=== PATIENT | female | born 1985 | race Caucasian/White ===

== ENCOUNTER 2019-02-02 21:33 | Emergency (ER) | payer SELFPAY ==
[~2019-02-02] VITALS: Ht 152 cm; Wt 79.0 kg
[~2019-02-02 21:33] MED LIST: ACHD5005 PO; CEPH500C PO; CIPR500T78 PO; FERR325C PO; HYDR1TAB8 PO; LEVO500T2 PO; LEVO500T69 PO; METR500T PO; MTP50T PO; NAPR-243 PO; PREN1TAB25 PO; TAMS0.4C98 PO
--- NOTE | 2019-02-02 22:19 | NUR ---
PT RETURNED TO ER WAITING ROOM D/T HIGH PT VOLUME, EXPLAINED WAIT TIMES, PT VERBALIZED UNDERSTANDING
[2019-02-02] MEDS ORDERED: KETOROLAC 30 MG/ML VIAL IVP STA (23:59)
[2019-02-03] MEDS ORDERED: CLINDAMYCIN 600 MG/50 ML IVPB 50 ML IV ONE
--- NOTE | 2019-02-03 00:38 | ED Integumentary General ---
General Chief Complaint: Skin/Wound Problems Stated Complaint: WOUND ON RT LEG Source: patient (PT SPEAKS FAIR [place]), other (MALE S.O.) History of Present Illness Date Seen by Provider: Feb 02, 2019 Time Seen by Provider: 23:55 Initial Comments PT ARRIVES VIA POV C/O "BOIL BETWEEN HER LEGS" FOR 3-4 DAYS NO FEVER NO DRAINAGE NO PROBLEMS URINATING NO VAGINAL DISCHARGE NO HISTORY OF SIMILAR STATES SHE WAS SEEN AT [facility] YESTERDAY FOR THIS PROBLEM AND WAS GIVEN RX FOR UNKNOWN ANTIBIOTIC PILL AND RX FOR AN UNKNOWN CREAM STATES "NOT BETTER" SO CAME TO ER STATES "TOO MUCH PAIN " BUT HAS NOT TAKEN ANYTHING FOR PAIN AT ANY TIME. PCP: [facility] Allergies and Home Medications Allergies Coded Allergies: No Known Drug Allergies (Unverified , 02/03/15) Home Medications Ferrous Sulfate 325 ( 65 )Mg Capsule.sa, 325 ( PO BID Prescribed by: MAURICE EM on 10/22/14 0657 Hydrocodone Bit/Acetaminophen 1 Tab Tab, 1 EACH PO Q4H PRN for PAIN-MODERATE Prescribed by: NIDIA RODRIGUEZ on 02/03/19 0218 Hydrocodone/Ibuprofen 1 Each Tablet, 1 EACH PO Q4H Prescribed by: NIDIA RODRIGUEZ on 02/03/15 235 Ibuprofen 800 Mg Tablet, 800 MG PO Q8H PRN for PAIN Prescribed by: NIDIA RODRIGUEZ on 02/03/19 022 Levofloxacin 500 Mg Tablet, 500 MG PO DAILY Prescribed by: NIDIA RODRIGUEZ on 02/03/152350 Sulfamethoxazole/Trimethoprim 1 Each Tablet, 1 EACH PO BID Prescribed by: NIDIA RODRIGUEZ on 02/03/19217 Tamsulosin HCl 0.4 Mg Cap, 0.4 MG PO DAILY Prescribed by: NIDIA RODRIGUEZ on 02/03/15 235 Patient Home Medication List Home Medication List Reviewed: Yes Review of Systems Review of Systems Constitutional: No fever Gastrointestinal: no symptoms reported Genitourinary: see HPI Musculoskeletal: no symptoms reported Skin: see HPI Psychiatric/Neurological: No Symptoms Reported Past Vsdxdcr-Xxxpjo-Gknkyl Hx Patient Social History Alcohol Use: Denies Use Recreational Drug Use: No Smoking Status: Never a Smoker Recent Foreign Travel: No Contact w/Someone Who Travel: No Immunizations Up To Date Tetanus Booster (TDap): Less than 5yrs Seasonal Allergies Seasonal Allergies: No Past Medical History Surgeries: No Respiratory: No Cardiac: No Neurological: No : No Reproductive Disorders: No Female Reproductive Disorders: Denies Sexually Transmitted Disease: No HIV/AIDS: No Genitourinary: Yes Kidney Stones Gastrointestinal: No Musculoskeletal: No Endocrine: No HEENT: No Loss of Vision: Denies Hearing Impairment: Denies Psychosocial: No Integumentary: No Blood Disorders: No Family Medical History No Family History of: Abdominal aortic aneurysm Familia's disease Alcoholism Aphasia Cancer Cancer of colon Cataract Chest pain Congenital heart disease Congestive heart failure Cystic fibrosis Dementia Dysphagia Family history: Allergy Family history: Alzheimer's disease Family history: Arthritis Family history: Asthma Family history: Breast disease Family history: Cardiovascular disease Family history: Coronary thrombosis Family history: Diabetes mellitus Family history: Gastrointestinal disease Family history: Glaucoma Family history: Hypertension Family history: Osteoporosis Family history: Thyroid disorder Headache Hearing loss Heart disease Hereditary disease History of - anemia History of - disorder History of - respiratory disease History of drug abuse Human immunodeficiency virus (HIV) seropositivity Hypercholesterolemia Infertile Kidney disease Malignant neoplasm of lung Myocardial infarction Parkinson's disease Prostate cancer Psychotic disorder Seizure disorder Stroke Tuberculosis Visual impairment No Pertinent Family Hx Physical Exam Vital Signs Capillary Refill : General Appearance: WD/WN, no apparent distress Gastrointestinal: non tender, soft Neurologic/Psychiatric: no motor/sensory deficits, alert, normal mood/affect, oriented x 3 Skin: other (RIGHT GROIN--LATERAL TO LABIA MAJORA--WITH LARGE POINTING ABSCESS APPROXIMATELY 3 CM IN DIAMETER, WITH SURROUNDING ERYTHEMA AND INDURATION OF APPROXIMATELY 10 CM. NO DRAINAGE. NO STREAKS. ) Skin Problem Character: abscess Procedures/Interventions I&D : Site: RIGHT GROIN Blade Size: 11 I & D Procedure: betadine prep, sterile drapes applied, sterile dressing applied, gauze wick placed, Wound Packing Packing/Drain: Idoform 1/4 Progress AREA CLEANSED WITH BETADINE INJECTED WITH 2% LIDOCAINE + EPI INCISED WITH #11 BLADE COPIOUS AMOUNTS OF EXTREMELY FOUL-SMELLING PURULENT DRAINAGE FROM WOUND WOUND PROBED TO BREAK UP LOCULATIONS IRRIGATED PROFUSELY WITH STERILE SALINE PACKED WITH 1/4" IODOFORM GAUZE STERILE ABD PAD APPLIED. Progress/Results/Core Measures Results/Orders Lab Results Laboratory Tests Test 02/03/19 00:30 Range/Units White Blood Count 13.5 H 4.3-11.0 10^3/uL Red Blood Count 4.39 4.35-5.85 10^6/uL Hemoglobin 12.4 11.5-16.0 G/DL Hematocrit 37 35-52 % Mean Corpuscular Volume 85 80-99 FL Mean Corpuscular Hemoglobin 28 25-34 PG Mean Corpuscular Hemoglobin Concent 33 32-36 G/DL Red Cell Distribution Width 14.7 H 10.0-14.5 % Platelet Count 360 130-400 10^3/uL Mean Platelet Volume 10.8 H 7.4-10.4 FL Neutrophils (%) (Auto) 68 42-75 % Lymphocytes (%) (Auto) 20 12-44 % Monocytes (%) (Auto) 9 0-12 % Eosinophils (%) (Auto) 3 0-10 % Basophils (%) (Auto) 0 0-10 % Neutrophils # (Auto) 9.2 H 1.8-7.8 X 10^3 Lymphocytes # (Auto) 2.6 1.0-4.0 X 10^3 Monocytes # (Auto) 1.3 H 0.0-1.0 X 10^3 Eosinophils # (Auto) 0.4 H 0.0-0.3 10^3/uL Basophils # (Auto) 0.0 0.0-0.1 10^3/uL Sodium Level 139 135-145 MMOL/L Potassium Level 4.0 3.6-5.0 MMOL/L Chloride Level 108 H 98-107 MMOL/L Carbon Dioxide Level 19 L 21-32 MMOL/L Anion Gap 12 5-14 MMOL/L Blood Urea Nitrogen 11 7-18 MG/DL Creatinine 0.76 0.60-1.30 MG/DL Estimat Glomerular Filtration Rate > 60 BUN/Creatinine Ratio 14 Glucose Level 99 70-105 MG/DL Calcium Level 8.8 8.5-10.1 MG/DL Corrected Calcium 9.0 8.5-10.1 MG/DL Total Bilirubin 0.3 0.1-1.0 MG/DL Aspartate Amino Transf (AST/SGOT) 12 5-34 U/L Alanine Aminotransferase (ALT/SGPT) 15 0-55 U/L Alkaline Phosphatase 64 40-136 U/L Total Protein 7.3 6.4-8.2 GM/DL Albumin 3.8 3.2-4.5 GM/DL Serum Test, Qualitative NEGATIVE NEGATIVE My Orders Orders - JENNIFER,NIDIA K DO Ed Iv/Invasive Line Start (02/02/19 23:59) Cbc With Automated Diff (02/02/19 23:59) Comprehensive Metabolic Panel (02/02/19 23:59) Hcg,Qualitative Serum (02/02/19 23:59) Ketorolac Injection (Toradol Injection) (02/02/19 23:59) Clindamycin 600 Mg/50 Ml Ivpb (Cleocin P (02/03/19 00:00) Ct Pelvis W (02/03/19 00:20) Iohexol Injection (Omnipaque 350 Mg/Ml 1 (02/03/19 01:30) Ns (Ivpb) (Sodium Chloride 0.9% Ivpb Bag (02/03/19 01:30) Lidocaine/Epi 2% 1:100,000 (Xylocaine/Ep (02/03/19 02:00) Wound Culture (02/03/19 01:50) Rx-Hydrocodone/Apap 5-325 Mg (Rx-Vicodin (02/03/19 02:15) Wound Dressing-Ed (02/03/19 02:13) Rx-Trimeth/Sulfameth Ds Tab (Rx-Bactrim/ (02/03/19 02:14) Medications Given in ED Current Medications Medications Dose Ordered Sig/Kostas Route Start Time Stop Time Status Last Admin Dose Admin Clindamycin Phosphate/Dextrose 50 ml @ 100 mls/hr ONCE ONCE IV 02/03/19 00:00 02/03/19 00:29 DC 02/03/19 01:03 100 MLS/HR Iohexol 100 ml ONCE ONCE IV 02/03/19 01:30 02/03/19 02:07 DC 02/03/19 01:22 100 ML Lidocaine/ Epinephrine 20 ml ONCE ONCE INJ 02/03/19 02:00 02/03/19 02:01 DC 02/03/19 02:00 20 ML Sodium Chloride 80 ml ONCE ONCE IV 02/03/19 01:30 02/03/19 02:07 DC 02/03/19 01:22 100 ML Departure Impression Primary Impression: Groin abscess Disposition: 01 HOME, SELF-CARE Condition: Stable Departure-Patient Inst. Referrals: [facility] Patient Instructions: Abscess Incision and Drainage (DC) Add. Discharge Instructions: LEAVE PACKING IN PLACE YOU MAY CHANGE DRESSING DAILY AND NEEDED STOP YOUR CURRENT ANTIBIOTIC, AND START TAKING NEW ANTIBIOTIC FOLLOW UP WITH [facility] IN 1-2 DAYS FOR FURTHER CARE, CALL IN AM FOR APPOINTMENT All discharge instructions reviewed with patient and/or family. Voiced understanding. Scripts Ibuprofen (Ibuprofen) 800 Mg Tablet 800 MG PO Q8H PRN for PAIN, #20 TAB Prov: NIDIA RODRIGUEZ DO 02/03/19 Hydrocodone Bit/Acetaminophen (Hydrocodone/Acetaminophen 5/325mg Tablet) 1 Tab Tab 1 EACH PO Q4H PRN for PAIN-MODERATE MDD 10 for 3 Days, #10 TAB Prov: NIDIA RODRIGUEZ DO 02/03/19 Sulfamethoxazole/Trimethoprim (Bactrim Ds Tablet) 1 Each Tablet 1 EACH PO BID, #20 TAB Prov: NIDIA RODRIGUEZ DO 02/03/19 Work/School Note: Work Release Form Date Seen in the Emergency Department: Feb 02, 2019 Return to Work: Feb 04, 2019 NIDIA RODRIGUEZ DO Feb 03, 2019 00:38 POS
[2019-02-03 00:44] LABS: BASOPHILS % (AUTO) 0 % (0-10); EOSINOPHILS # (AUTO) 0.4 10^3/uL (0.0-0.3); EOSINOPHILS % (AUTO) 3 % (0-10); HEMATOCRIT 37 % (35-52); HEMOGLOBIN 12.4 G/DL (11.5-16.0); LYMPHOCYTES # (AUTO) 2.6 X 10^3 (1.0-4.0); LYMPHOCYTES % (AUTO) 20 % (12-44); MEAN CORPUSCULAR HEMOGLOBIN 28 PG (25-34); MEAN CORPUSCULAR HGB CONC 33 G/DL (32-36); MEAN CORPUSCULAR VOLUME 85 FL (80-99); MEAN PLATELET VOLUME 10.8 FL (7.4-10.4); MONOCYTES # (AUTO) 1.3 X 10^3 (0.0-1.0); MONOCYTES % (AUTO) 9 % (0-12); NEUTROPHILS # (AUTO) 9.2 X 10^3 (1.8-7.8); NEUTROPHILS % (AUTO) 68 % (42-75); PLATELET COUNT 360 10^3/uL (130-400); RED CELL DISTRIBUTION WIDTH 14.7 % (10.0-14.5); WHITE BLOOD COUNT 13.5 10^3/uL (4.3-11.0)
[2019-02-03 01:05] LABS: ALANINE AMINOTRANSFERASE 15 U/L (0-55); ALBUMIN 3.8 GM/DL (3.2-4.5); ALKALINE PHOSPHATASE 64 U/L (40-136); BILIRUBIN,TOTAL 0.3 MG/DL (0.1-1.0); BUN/CREATININE RATIO 14; CALCIUM 8.8 MG/DL (8.5-10.1); CARBON DIOXIDE 19 MMOL/L (21-32); CHLORIDE 108 MMOL/L (98-107); CREATININE SERUM 0.76 MG/DL (0.60-1.30); GFR ESTIMATED > 60; GLUCOSE 99 MG/DL (70-105); SODIUM 139 MMOL/L (135-145); TOTAL PROTEIN 7.3 GM/DL (6.4-8.2)
[2019-02-03] MEDS ORDERED: NS 100 ML (IVPB) BAG IV ONE (01:30)
[2019-02-03] MEDS ORDERED: IOHEXOL 350 MG/ML 100 ML (OMNIPAQUE 350) VIAL IV ONE (01:30)
[2019-02-03] MEDS ORDERED: LIDOCAINE/EPI 2% 1:100,00 (XYLOCAINE) 20 ML VIAL INJ ONE (02:00)
[2019-02-03] MEDS ORDERED: RX-TRIMETH/SULFA. 160-800 MG (BACTRIM DS) TAB PPK#2 PO STA (02:14)
[2019-02-03] MEDS ORDERED: RX-HYDROCODONE/APAP 5/325 MG #4 TAB PK PO PRN (02:15)
[2019-02-03] MEDS ORDERED: ACHD5005 PO (02:18)
[2019-02-03] MEDS ORDERED: SULF1TAB35 PO (02:18)
[2019-02-03] MEDS ORDERED: IBUP-1780 PO (02:20)
[2019-02-03 02:27] VITALS: BP 126/88
--- NOTE | 2019-02-03 07:03 | Diagnostic Imaging Report ---
PROCEDURE: CT pelvis with contrast. TECHNIQUE: Oral and intravenous contrast were administered with pelvic CT performed. Auto Exposure Controls were utilized during the CT exam to meet ALARA standards for radiation dose reduction. DATE: February 03, 2019. INDICATION: 33-year-old female, evaluation for inguinal abscess. COMPARISON: CT abdomen and pelvis February 03, 2015. FINDINGS: The visualized segments of the intestinal tract are not distended. The appendix is normal. There is no free intraperitoneal air. There is no free pelvic fluid. There is a peripherally enhancing central low attenuation mass near the skin surface of the inner aspect of the right thigh on axial image 100 measuring 3.1 x 2.9 cm in axial dimension with prominent adjacent inflammatory stranding. There does appear to be skin thickening in the region. This is compatible with provided history of abscess. There is additional adjacent inflammatory stranding of the subcutaneous tissues of the medial thigh likely relating to cellulitis although not technically specific. There is no abnormal soft tissue gas. There is an asymmetrically prominent right inguinal lymph node measuring 1.2 cm in short axis on axial image 76 which is likely reactive. There are also very small right external iliac chain lymph nodes which are also likely reactive. The uterus and adnexa are grossly unremarkable in appearance on CT. There is no identified urinary bladder wall thickening. There are bilateral L5 pars interarticularis defects with mild grade 1 anterolisthesis of L5 on S1. IMPRESSION: 1. Findings consistent with provided history of abscess within the subcutaneous tissues of the medial aspect of the right thigh with adjacent inflammatory stranding of the subcutaneous tissues most likely relating to cellulitis. 2. No abnormal soft tissue gas or radiopaque foreign body. 3. Prominent right inguinal and right external iliac chain lymph nodes which are likely reactive. 4. Bilateral L5 pars interarticularis defects with grade 1 anterolisthesis of L5 on S1. Dictated by: Dictated on workstation # [id number]
== END 2019-02-03 02:32 | disposition home or self-care (01) ==
LOC: EDUNIT# 21:33 → ER 21:37
DX: L02.214 Cutaneous abscess of groin (principal); Z87.442 Personal history of urinary calculi
CPT/HCPCS: 36415; 72193; 80053; 84703; 85025; 87070; 87205

== ENCOUNTER → 2022-03-25 | Outpatient (CLI) | payer SELFPAY ==
[~2022-03-25] MED LIST changes: +IBUP-1780 PO; +SULF1TAB38 PO; -TAMS0.4C98 PO; +TMSL.4C PO
== END ==
LOC: LAB 09:36
PROVIDERS: ATTEND Obstetrics & Gynecology
DX: Z01.89 Encounter for other specified special examinations (principal)
CPT/HCPCS: 36415; 84702

== ENCOUNTER 2022-05-10 10:12 | Emergency (ER) | payer SELFPAY ==
[~2022-05-10] VITALS: Ht 152.4 cm; Wt 86.2 kg
--- NOTE | 2022-05-10 10:49 | ED GU-Female ---
General Chief Complaint: OB < 20 WEEKS Stated Complaint: 12 WEEKS | VAGINAL BLEEDING Source: patient, family Exam Limitations: language barrier History of Present Illness Date Seen by Provider: May 10, 2022 Time Seen by Provider: 10:35 Initial Comments Patient is a 37-year-old female who presents to the emergency room chief complaint heavy vaginal bleeding onset 1 to 2 hours prior to arrival. Patient describes the bleeding as heavy. She denies abdominal cramping or pain. No burning with urination. No abdominal pain. She has not had any problems with this so far. She is getting care through Dr. Deal. She states her due date is November 19 which places her at 12 weeks and 3/7. No recent illnesses. She does not take any daily medications. No trauma. Bedside wkfpf-wy-lbxh ultrasound used at initial evaluation demonstrates good movement and adequate heart beat. 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) Severity/Quality: moderate ("heavy") Location: vaginal Activities at Onset: none Prior Genitourinary Problems: none Associated Symptoms: denies symptoms Allergies and Home Medications Allergies Coded Allergies: No Known Drug Allergies (Unverified , 02/03/15) Patient Home Medication List Home Medication List Reviewed: Yes Ferrous Sulfate (Iron) 325 ( 65 )Mg Capsule.sa, 325 ( PO BID Prescribed by: MAURICE EM on 10/22/14 0657 Hydrocodone Bit/Acetaminophen (Lortab 5 Mg Tablet) 1 Tab Tab, 1 EACH PO Q4H PRN for PAIN-MODERATE Prescribed by: NIDIA RODRIGUEZ on 02/03/19217 Hydrocodone/Ibuprofen (Vicoprofen 7.5-200 mg Tablet) 1 Each Tablet, 1 EACH PO Q4H Prescribed by: NIDIA RODRIGUEZ on 02/03/152350 Ibuprofen (Ibuprofen) 800 Mg Tablet, 800 MG PO Q8H PRN for PAIN Prescribed by: NIDIA RODRIGUEZ on 02/03/19219 Levofloxacin (Levaquin) 500 Mg Tablet, 500 MG PO DAILY Prescribed by: NIDIA RODRIGUEZ on 02/03/152350 Sulfamethoxazole/Trimethoprim (Bactrim Ds Tablet) 1 Each Tablet, 1 EACH PO BID Prescribed by: NIDIA RODRIGUEZ on 02/03/19217 Tamsulosin HCl (Flomax) 0.4 Mg Cap, 0.4 MG PO DAILY Prescribed by: NIDIA RODRIGUEZ on 02/03/15 5791 Review of Systems Review of Systems Constitutional: see HPI EENTM: no symptoms reported Respiratory: no symptoms reported Cardiovascular: no symptoms reported Gastrointestinal: no symptoms reported Genitourinary: other (vaginal bleeding today) : Yes Expected Date of Delivery: Nov 19, 2022 Musculoskeletal: no symptoms reported Skin: no symptoms reported Psychiatric/Neurological: No Symptoms Reported All Other Systemes Reviewed Negative Unless Noted: Yes Past Bkapuxg-Mdvmbw-Uhmvks Hx Immunizations Up To Date Tetanus Booster (TDap): Less than 5yrs Seasonal Allergies Seasonal Allergies: No Past Medical History Surgeries: No Respiratory: No Cardiac: No Neurological: No Reproductive Disorders: No Female Reproductive Disorders: Denies Sexually Transmitted Disease: No HIV/AIDS: No Genitourinary: Yes Kidney Stones Gastrointestinal: No Musculoskeletal: No Endocrine: No HEENT: No Loss of Vision: Denies Hearing Impairment: Denies Cancer: No Psychosocial: No Integumentary: No Blood Disorders: No Family Medical History No Family History of: Abdominal aortic aneurysm [place]'s disease Alcoholism Aphasia Cancer Cancer of colon Cataract Chest pain Congenital heart disease Congestive heart failure Cystic fibrosis Dementia Dysphagia Family history: Allergy Family history: Alzheimer's disease Family history: Arthritis Family history: Asthma Family history: Breast disease Family history: Cardiovascular disease Family history: Coronary thrombosis Family history: Diabetes mellitus Family history: Gastrointestinal disease Family history: Glaucoma Family history: Hypertension Family history: Osteoporosis Family history: Thyroid disorder Headache Hearing loss Heart disease Hereditary disease History of - anemia History of - disorder History of - respiratory disease History of drug abuse Human immunodeficiency virus (HIV) seropositivity Hypercholesterolemia Infertile Kidney disease Malignant neoplasm of lung Myocardial infarction Parkinson's disease Prostate cancer Psychotic disorder Seizure disorder Stroke Tuberculosis Visual impairment No Pertinent Family Hx Physical Exam Vital Signs Vital Signs - First Documented 05/10/22 10:32 Temp 36.9 Pulse 95 Resp 16 B/P (MAP) 150/94 (112) Pulse Ox 97 O2 Delivery Room Air Capillary Refill : Height, Weight, BMI Height: 5'6" Weight: 160lbs. 0.6oz. 72.605308ci; 34.00 BMI Method:Stated General Appearance: WD/WN, no apparent distress HEENT: PERRL/EOMI Cardiovascular: regular rate, rhythm Respiratory: no respiratory distress, no accessory muscle use Gastrointestinal: normal bowel sounds, non tender, soft Extremities: normal range of motion, normal inspection Neurologic/Psychiatric: alert, normal mood/affect, oriented x 3 Skin: normal color, warm/dry Progress/Results/Core Measures Suspected Sepsis SIRS Temperature: Pulse: Respiratory Rate: Laboratory Tests 05/10/22 12:02: White Blood Count 13.2H Blood Pressure / Mean: Laboratory Tests 05/10/22 12:02: Creatinine 0.61, Platelet Count 396 Results/Orders Lab Results Laboratory Tests Test 05/10/22 12:02 Range/Units White Blood Count 13.2 H 4.3-11.0 10^3/uL Red Blood Count 4.94 3.80-5.11 10^6/uL Hemoglobin 14.3 11.5-16.0 g/dL Hematocrit 43 35-52 % Mean Corpuscular Volume 88 80-99 fL Mean Corpuscular Hemoglobin 29 25-34 pg Mean Corpuscular Hemoglobin Concent 33 32-36 g/dL Red Cell Distribution Width 13.5 10.0-14.5 % Platelet Count 396 130-400 10^3/uL Mean Platelet Volume 10.2 9.0-12.2 fL Immature Granulocyte % (Auto) 1 % Neutrophils (%) (Auto) 75 42-75 % Lymphocytes (%) (Auto) 18 12-44 % Monocytes (%) (Auto) 5 0-12 % Eosinophils (%) (Auto) 2 0-10 % Basophils (%) (Auto) 1 0-10 % Neutrophils # (Auto) 9.9 H 1.8-7.8 10^3/uL Lymphocytes # (Auto) 2.3 1.0-4.0 10^3/uL Monocytes # (Auto) 0.7 0.0-1.0 10^3/uL Eosinophils # (Auto) 0.2 0.0-0.3 10^3/uL Basophils # (Auto) 0.1 0.0-0.1 10^3/uL Immature Granulocyte # (Auto) 0.1 0.0-0.1 10^3/uL Urine Color YELLOW Urine Clarity CLEAR Urine pH 6.0 5-9 Urine Specific [place] 1.010 L 1.016-1.022 Urine Protein NEGATIVE NEGATIVE Urine Glucose (UA) NEGATIVE NEGATIVE Urine Ketones NEGATIVE NEGATIVE Urine Nitrite NEGATIVE NEGATIVE Urine Bilirubin NEGATIVE NEGATIVE Urine Urobilinogen 0.2 < = 1.0 MG/DL Urine Leukocyte Esterase NEGATIVE NEGATIVE Urine RBC (Auto) 3+ H NEGATIVE Urine RBC 2-5 H /HPF Urine WBC NONE /HPF Urine Squamous Epithelial Cells 0-2 /HPF Urine Crystals NONE /LPF Urine Bacteria TRACE /HPF Urine Casts NONE /LPF Urine Mucus NEGATIVE /LPF Urine Culture Indicated NO Sodium Level 138 135-145 MMOL/L Potassium Level 3.8 3.6-5.0 MMOL/L Chloride Level 107 98-107 MMOL/L Carbon Dioxide Level 20 L 21-32 MMOL/L Anion Gap 11 5-14 MMOL/L Blood Urea Nitrogen 7 7-18 MG/DL Creatinine 0.61 0.60-1.30 MG/DL Estimat Glomerular Filtration Rate 118 BUN/Creatinine Ratio 11 Glucose Level 88 70-105 MG/DL Calcium Level 9.5 8.5-10.1 MG/DL My Orders Orders - KATIE OBREGON MD Ed Iv/Invasive Line Start (05/10/22 10:53) Cbc With Automated Diff (05/10/22 10:53) Ua Culture If Indicated (05/10/22 10:53) Basic Metabolic Panel (05/10/22 10:53) Us Ob<14 Wks Sngle W/Transvag (05/10/22 10:53) Vital Signs/I&O 05/10/22 10:32 Temp 36.9 Pulse 95 Resp 16 B/P (MAP) 150/94 (112) Pulse Ox 97 O2 Delivery Room Air Capillary Refill : Progress Note : Time: 13:05 Progress Note Case discussed with Dr Deal Diagnostic Imaging Diagonstic Imaging: Ultrasound Comments [facility], [place] NAME: NORMA CHOI [facility] REC#: [id number] PT STATUS: REG ER : 1985 PHYSICIAN: KATIE OBREGON MD ADMIT DATE: 05/10/22/ER Signed Date of Exam:05/10/22 US OB<14 WKS SNGLE W/TRANSVAG EXAM: First Trimester Ultrasound INDICATIONS: Age by LMP is 13 weeks, 4 days. TECHNIQUE: The pelvis was scanned using transabdominal and endovaginal technique. COMPARISON: None. FINDINGS: Endovaginal sonography demonstrates a single living intrauterine gestation. No secondary yolk sac is identified. The appearance of the embryo and gestation is normal for age. There is a small subchorionic hemorrhage measuring 2.7 x 1.4 x 1.0 cm. Both ovaries were identified and appear normal. The left measures 3.0 x 2.0 x 3.3 cm, and the right 2.2 x 3.3 x 3.7 cm. No abnormal adnexal masses. No free fluid. biometry: Muir rump length 6.1 cm: 12 weeks, 4 days. The placenta is low-lying and appears to completely cover the cervical os concerning for grade 4 or complete previa. IMPRESSION: 1. Single living intrauterine gestation with estimated gestational age by CRL of 12 weeks 4 days. 2. Small subchorionic hemorrhage measuring 2.7 cm. 3. Findings concerning for complete placenta previa. Dictated by: Dictated on workstation # [id number] Dict: 05/10/22 1211 Trans: 05/10/22 1241 CV [id number] Interpreted by: LUCHO LOPEZ DO Electronically signed by: LUCHO LOPEZ DO 05/10/22 1241 Departure Impression Primary Impression: Threatened miscarriage Additional Impression: Subchorionic hemorrhage in second trimester Qualified Codes: O41.8X20 - Other specified disorders of amniotic fluid and membranes, second trimester, not applicable or unspecified; O46.8X2 - Other antepartum hemorrhage, second trimester Disposition: 01 HOME, SELF-CARE Condition: Stable Departure-Patient Inst. Decision time for Depature: 13:07 Referrals: [facility] (PCP/Family) Primary Care Physician PUNEET DEAL DO Patient Instructions: Threatened Miscarriage (DC) Add. Discharge Instructions: Continue to drink plenty of fluids to stay well-hydrated. Pelvic rest is very important. Do not use tampons, douches or have sex until you have followed up with Dr. Deal and he gives you the all clear. I am giving you a lifting restriction for work of 10 pounds. If you have onset of very heavy vaginal bleeding to the point where you feel short of breath, weak and dizzy when you stand up or have a pass out spell please come back to the emergency department for reevaluation. Please keep your appointment with Dr. Deal on May 17. Continue to take your vitamins daily. Contine bebiendo muchos lquidos para mantenerse brannon hidratado. El descanso plvico es muy importante. No use tampones, duchas vaginales ni tenga relaciones sexuales hasta que haya hecho un seguimiento con el Dr. Deal y l le d el visto zamudio. Le doy otilio restriccin de levantamiento para el trabajo de 10 libras. Si comienza a sangrar mucho por la vagina hasta el punto en que se siente sin aliento, dbil y mareado cuando se pone de pie o se desmaya, vuelva al departamento de emergencias para otilio reevaluacin. Por favor mantenga remy dao con el Dr. Deal el . Contine tomando eduard vitaminas prenatales diariamente. Work/School Note: Work Release Form Date Seen in the Emergency Department: 2022 Return to Work: May 11, 2022 Restrictions: Lifting Restriction while working of no more than 10# Copy Copies To 1: LEOPOLDO TANNER DO Copies To 2: PUNEET DEAL KATHRYN M MD May 10, 2022 10:49
[2022-05-10 12:09] LABS: BASOPHILS # (AUTO) 0.1 10^3/uL (0.0-0.1); BASOPHILS % (AUTO) 1 % (0-10); EOSINOPHILS # (AUTO) 0.2 10^3/uL (0.0-0.3); EOSINOPHILS % (AUTO) 2 % (0-10); HEMATOCRIT 43 % (35-52); HEMOGLOBIN 14.3 g/dL (11.5-16.0); LYMPHOCYTES # (AUTO) 2.3 10^3/uL (1.0-4.0); LYMPHOCYTES % (AUTO) 18 % (12-44); MEAN CORPUSCULAR HEMOGLOBIN 29 pg (25-34); MEAN CORPUSCULAR HGB CONC 33 g/dL (32-36); MEAN CORPUSCULAR VOLUME 88 fL (80-99); MEAN PLATELET VOLUME 10.2 fL (9.0-12.2); MONOCYTES # (AUTO) 0.7 10^3/uL (0.0-1.0); MONOCYTES % (AUTO) 5 % (0-12); NEUTROPHILS # (AUTO) 9.9 10^3/uL (1.8-7.8); NEUTROPHILS % (AUTO) 75 % (42-75); PLATELET COUNT 396 10^3/uL (130-400); WHITE BLOOD COUNT 13.2 10^3/uL (4.3-11.0)
[2022-05-10 12:10] LABS: BILIRUBIN,URINE NEGATIVE (NEGATIVE); CLARITY,URINE CLEAR; COLOR,URINE YELLOW; GLUCOSE, URINE (UA) NEGATIVE (NEGATIVE); KETONES,URINE NEGATIVE (NEGATIVE); LEUKOCYTE ESTERASE ,URINE NEGATIVE (NEGATIVE); NITRITE,URINE NEGATIVE (NEGATIVE); PROTEIN,URINE NEGATIVE (NEGATIVE)
--- NOTE | 2022-05-10 12:21 | Diagnostic Imaging Report ---
EXAM: First Trimester Ultrasound INDICATIONS: Age by LMP is 13 weeks, 4 days. TECHNIQUE: The pelvis was scanned using transabdominal and endovaginal technique. COMPARISON: None. FINDINGS: Endovaginal sonography demonstrates a single living intrauterine gestation. No secondary yolk sac is identified. The appearance of the embryo and gestation is normal for age. There is a small subchorionic hemorrhage measuring 2.7 x 1.4 x 1.0 cm. Both ovaries were identified and appear normal. The left measures 3.0 x 2.0 x 3.3 cm, and the right 2.2 x 3.3 x 3.7 cm. No abnormal adnexal masses. No free fluid. biometry: [place] rump length 6.1 cm: 12 weeks, 4 days. The placenta is low-lying and appears to completely cover the cervical os concerning for grade 4 or complete previa. IMPRESSION: 1. Single living intrauterine gestation with estimated gestational age by CRL of 12 weeks 4 days. 2. Small subchorionic hemorrhage measuring 2.7 cm. 3. Findings concerning for complete placenta previa. Dictated by: Dictated on workstation # [id number]
[2022-05-10 12:23] LABS: BACTERIA,URINE TRACE /HPF; POTASSIUM 3.8 MMOL/L (3.6-5.0); SQUAMOUS EPITHELIAL CELL,UR 0-2 /HPF
[2022-05-10 12:24] LABS: CALCIUM 9.5 MG/DL (8.5-10.1)
[2022-05-10 12:28] LABS: CREATININE SERUM 0.61 MG/DL (0.60-1.30)
[2022-05-10 13:18] VITALS: BP 135/86
== END 2022-05-10 13:18 | disposition home or self-care (01) ==
LOC: EDUNIT# 10:12 → ER 10:14
DX: O20.0 Threatened abortion (principal); Z3A.12 12 weeks gestation of pregnancy
CPT/HCPCS: 36415; 76801; 76817; 80048; 81000; 85025

== ENCOUNTER → 2022-07-11 | Outpatient (CLI) | payer OTHER ==
--- NOTE | 2022-07-11 18:07 | Diagnostic Imaging Report ---
INDICATION: Supervision of normal . Anatomy scan. TECHNIQUE: Multiple real-time grayscale images were obtained over the gravid uterus. COMPARISON: 05/10/2022. FINDINGS: A single live intrauterine gestation is seen in cephalic presentation. heart tones measure 146 BPM. The placenta is posterior and low lying. The cervix is closed and measures 4.8 cm in length. The BLU is normal measuring 19.7 cm. Views of the adnexa are unremarkable. The kidneys, urinary bladder, stomach, ventricles, four-chamber heart, three-vessel cord, spine, and cord insertion are visualized and have a normal appearance. Biometrical measurements are as follows: Biparietal 5.11 cm, age 21 weeks 4 days. Head circumference 19.55 cm, age 21 weeks 6 days. Abdominal circumference 18.77 cm, age 23 weeks 4 days. Femur length 3.43 cm, age 20 weeks 6 days. Sonographic estimate age: 22 weeks 0 days. Sonographic estimated date of delivery: 11/14/2022. Estimated Weight: 487 gm (+/- 71 gm). LMP percentile: 89%. heart rate: 146 beats per minute. number: 1 of 1. IMPRESSION: 1. Single live intrauterine gestation measuring 22 weeks 0 days with an estimated due date of 11/14/2022. These are within range with the clinical dates. Recommend continued follow-up as indicated. 2. Posterior placenta which is somewhat low lying measuring 2.4 cm from the internal cervical os. Recommend continued attention on follow-up. 3. Unremarkable anatomy scan. No abnormalities are identified. Dictated by: Dictated on workstation # [id number]
== END ==
LOC: RAD 12:45
PROVIDERS: ATTEND Nurse Practitioner Women's Health
DX: Z34.02 Encounter for supervision of normal first pregnancy, second trimester (principal); Z3A.22 22 weeks gestation of pregnancy
CPT/HCPCS: 76805

== ENCOUNTER → 2022-10-09 | Outpatient (CLI) | payer SELFPAY | LOC: LABNPT 09:36 | PROVIDERS: ATTEND Nurse Practitioner Women's Health | DX: O13.9 Gestational [pregnancy-induced] hypertension without significant proteinuria, unspecified trimester (principal); Z3A.00 Weeks of gestation of pregnancy not specified | CPT/HCPCS: 82570; 84156 ==

== ENCOUNTER → 2022-10-10 | Outpatient (CLI) | payer OTHER ==
--- NOTE | 2022-10-10 17:20 | Diagnostic Imaging Report ---
INDICATION: Large for dates. TECHNIQUE: Multiple real-time grayscale images were obtained over the gravid uterus. COMPARISON: 07/11/2022. FINDINGS: There is a single live fetus in a cephalic presentation. heart rate was recorded at 140 BPM. Placenta is posterior and fundal. No previa is detected. The amniotic fluid index is 12.5 cm. Cervical length is 3.9 cm. Biometrical measurements are as follows: Biparietal 8.89 cm, age 36 weeks 0 days. Head circumference 32.52 cm, age 36 weeks 6 days. Abdominal circumference 33.67 cm, age 37 weeks 5 days. Femur length 6.74 cm, age 34 weeks 5 days. Sonographic estimate age: 36 weeks 3 days. Sonographic estimated date of delivery: 11/19/2022. Estimated Weight: 2983 gm (+/- 436 gm). LMP percentile: 96%. heart rate: 140 beats per minute. number: 1 of 1. IMPRESSION: Single live IUP of 36 weeks 3 days gestational age showing normal interval growth when compared with prior exam from 07/11/2022. Placenta is no longer low lying in position. No previa is detected. No complicating features are detected. Dictated by: Dictated on workstation # [id number]
== END ==
LOC: RAD 09:37
PROVIDERS: ATTEND Nurse Practitioner Women's Health
DX: O36.63X1 Maternal care for excessive fetal growth, third trimester, fetus 1 (principal); Z3A.36 36 weeks gestation of pregnancy
CPT/HCPCS: 76805

== ENCOUNTER → 2022-10-24 | Outpatient (CLI) | payer SELFPAY ==
[~2022-10-24] MED LIST changes: +LABE100T9 PO; +PNV-9 PO
== END ==
LOC: LABNPT 14:22
PROVIDERS: ATTEND Nurse Practitioner Women's Health
DX: O13.9 Gestational [pregnancy-induced] hypertension without significant proteinuria, unspecified trimester (principal); Z3A.00 Weeks of gestation of pregnancy not specified
CPT/HCPCS: 82570; 84156

== ENCOUNTER 2022-10-27 11:41 | Inpatient (IN) | payer SELFPAY ==
[2022-10-27] VITALS (77 sets, daily range): BP systolic 122–181; BP diastolic 70–108
[~2022-10-27] VITALS: Ht 154.9 cm; Wt 97.7 kg
[~2022-10-27 11:41] MED LIST changes: -DOCU100C37 PO; -FERR325T24 PO; -LABE100T9 PO; -PNV-9 PO
[2022-10-27] MEDS ORDERED: CALCIUM GLUCONATE 10% 4.65 MEQ/10 ML VIAL IV SCH (12:00)
[2022-10-27] MEDS ORDERED: D5 LR 1,000 ML IV SOLN 1,000 ML IV SCH (12:00)
[2022-10-27] MEDS ORDERED: MAGNESIUM 4 GM/100 ML IVPB 100 ML IV SCH (12:00)
[2022-10-27 12:30] LABS: BASOPHILS # (AUTO) 0.1 10^3/uL (0.0-0.1); BASOPHILS % (AUTO) 1 % (0-10); EOSINOPHILS # (AUTO) 0.1 10^3/uL (0.0-0.3); EOSINOPHILS % (AUTO) 1 % (0-10); HEMATOCRIT 32 % (35-52); HEMOGLOBIN 10.3 g/dL (11.5-16.0); LYMPHOCYTES # (AUTO) 2.3 10^3/uL (1.0-4.0); LYMPHOCYTES % (AUTO) 21 % (12-44); MEAN CORPUSCULAR HEMOGLOBIN 26 pg (25-34); MEAN CORPUSCULAR HGB CONC 32 g/dL (32-36); MEAN CORPUSCULAR VOLUME 82 fL (80-99); MEAN PLATELET VOLUME 10.8 fL (9.0-12.2); MONOCYTES # (AUTO) 1.2 10^3/uL (0.0-1.0); MONOCYTES % (AUTO) 11 % (0-12); NEUTROPHILS # (AUTO) 6.9 10^3/uL (1.8-7.8); NEUTROPHILS % (AUTO) 63 % (42-75); PLATELET COUNT 381 10^3/uL (130-400); WHITE BLOOD COUNT 10.9 10^3/uL (4.3-11.0)
[2022-10-27] MEDS ORDERED: MAGNESIUM 2 GM/50 ML IVPB 2 GM in MAGNESIUM 4 GM/100 ML IVPB 100 ML IV ONE (12:30)
[2022-10-27] MEDS ORDERED: AMPICILLIN (IV) 2,000 MG in NS (IVPB) 50 ML 50 ML IV SCH (12:33)
[2022-10-27] MEDS ORDERED: MAGNESIUM 2 GM/50 ML IVPB 50 ML IV ONE (12:37)
[2022-10-27] MEDS ORDERED: MAGNESIUM 4 GM/100 ML IVPB 100 ML IV ONE (12:37)
[2022-10-27] MEDS ORDERED: WATER (STERILE) FOR INJECTION 0 ML ONE (12:37)
[2022-10-27] MEDS ORDERED: AMPICILLIN 2,000 MG/14.8 ML (IV USE) ONE (12:37)
--- NOTE | 2022-10-27 12:40 | History & Physical-OB ---
OB - Chief Complaint & HPI Date/Time Date of Admission: Date of Admission: Oct 27, 2022 at 11:41 Date seen by a Provider: Oct 27, 2022 Time Seen by a Provider: 10:45 Chief Complaint/History OB-Reason for Admission/Chief: Obstetrical Complication Hx : 7 Hx Para: 4 Expected Date of Delivery: Nov 19, 2022 Gestational Age in Weeks: 36 Gestational Age in Days: 5 Indication for induction: medical complication (severe preeclampsia) Admission Nurse Assessment Rev: Yes Other This 37yo presents for IOL d/t severe preeclampsia with BP >160/90 and elevated liver enzymes. Pt states that she has nausea that started today but denies PALMER, vision changes, epigastric pain. EFW 3406g HC/AC 0.96 O+ GBS + R-I Hep B/C neg HIV neg Allergies and Home Medications Allergies Coded Allergies: No Known Drug Allergies (Unverified , 02/03/15) Patient Home Medication List Home Medication List Reviewed: Yes Cephalexin (Cephalexin) 500 Mg Capsule, 500 MG PO QID, (Reported) Entered as Reported by: SAEED ONTIVEROS on 10/27/221640 Last Action: New Order Labetalol HCl (Labetalol HCl) 100 Mg Tablet, 100 MG PO BID, (Reported) Entered as Reported by: SAEED ONTIVEROS on 10/27/22 164 Last Action: New Order Pnv 119/Iron Fum/Folic Acid ( 19 Tablet) 29 Mg Iron-1 Mg Tablet, 1 EACH PO DAILY, (Reported) Entered as Reported by: SAEED ONTIVEROS on 10/27/22 1626 Last Action: New Order Discontinued Medications Ferrous Sulfate (Iron) 325 ( 65 )Mg Capsule.sa, 325 ( PO BID Discontinued Reason: No Longer Taking Prescribed by: MAURICE EM on 10/22/14 0657 Last Action: Discontinued Hydrocodone Bit/Acetaminophen (Lortab 5 Mg Tablet) 1 Tab Tab, 1 EACH PO Q4H PRN for PAIN-MODERATE Discontinued Reason: No Longer Taking Prescribed by: NIDIA RODRIGUEZ on 02/03/19 0218 Last Action: Discontinued Hydrocodone/Ibuprofen (Vicoprofen 7.5-200 mg Tablet) 1 Each Tablet, 1 EACH PO Q4H Discontinued Reason: No Longer Taking Prescribed by: NIDIA RODRIGUEZ on 02/03/15 2651 Last Action: Discontinued Ibuprofen (Ibuprofen) 800 Mg Tablet, 800 MG PO Q8H PRN for PAIN Discontinued Reason: No Longer Taking Prescribed by: NIDIA RODRIGUEZ on 02/03/19219 Last Action: Discontinued Levofloxacin (Levaquin) 500 Mg Tablet, 500 MG PO DAILY Discontinued Reason: No Longer Taking Prescribed by: NIDIA RODRIGUEZ on 02/03/152350 Last Action: Discontinued Sulfamethoxazole/Trimethoprim (Bactrim Ds Tablet) 1 Each Tablet, 1 EACH PO BID Discontinued Reason: No Longer Taking Prescribed by: NIDIA RODRIGUEZ on 02/03/19217 Last Action: Discontinued Tamsulosin HCl (Flomax) 0.4 Mg Cap, 0.4 MG PO DAILY Discontinued Reason: No Longer Taking Prescribed by: NIDIA RODRIGUEZ on 02/03/152350 Last Action: Discontinued OB - History Hx of Present Care: Yes Ultrasounds: Abnormal US findings (LGA EFW 3406g HC/AC 0.96) Obstetrical Complications: Pre-eclampsia Information Induced Hypertension: Yes Maternal Gestational Diabetes: No Hemorrhage: No Obstetrical History Hx : 7 Hx Para: 4 Hx # Term Pregnancies: 4 Hx # Pregnancies: 0 Number of Living Children: 4 Hx Termination: Yes Hx Total # of Abortions (Spona: 2 Hx Multiple Gestation: No Hx Ectopic : No Hx Stillbirth: No Hx Complication: No Hx Induced Hypertens: Yes Hx Maternal Gestational Diabet: No Delivery History Hx Dystocia: No Hx Large For Gestational Age I: No Hx Small for Gestational Age I: No Hx Section: No Hx Vaginal Delivery Post C-Sec: No Hx Blood Disorders: No Patient Past Medical History PIH/Preeclampsia Social History/Family History Alcohol Use: Denies Use Smoking Cessation: Never smoker Immunizations Influenza Vaccine Up-to-Date: Yes; Up-to-Date Tetanus Booster (TDap): Less than 5yrs OB - Admission Exam Physical Exam HEENT: NCAT Heart: Rhythm Normal Lungs: Clear Abdomen: Gravid Extremities: Edema (+2 pittling BLE) Reflexes: Normal Cervical Dilatation: 2cm Effacement: 50% Station: Ballotable Membranes: Intact Amniotic Fluid: Clear Heart Rate: 140's Accelerations: Accelerations Present Decelerations: No Decelerations Short Term Variability: Present Server Developer Variability: Average (6-25) Contractions on Admission: >10 Minutes Apart Intensity: Mild Mckeon Scoring Tool (Modified) Dilation (cm): 1-2cm (1) Effacement (%): 31-51% (1) Descent/Station: -3 (0) Cervix Consistency: Soft (2) Cervix Position: Middle/Mid-Position (1) Mckeon Score: 6 Labs Laboratory Tests Test 10/27/22 12:18 Range/Units White Blood Count 10.9 4.3-11.0 10^3/uL Red Blood Count 3.91 3.80-5.11 10^6/uL Hemoglobin 10.3 L 11.5-16.0 g/dL Hematocrit 32 L 35-52 % Mean Corpuscular Volume 82 80-99 fL Mean Corpuscular Hemoglobin 26 25-34 pg Mean Corpuscular Hemoglobin Concent 32 32-36 g/dL Red Cell Distribution Width 17.9 H 10.0-14.5 % Platelet Count 381 130-400 10^3/uL Mean Platelet Volume 10.8 9.0-12.2 fL Immature Granulocyte % (Auto) 4 % Neutrophils (%) (Auto) 63 42-75 % Lymphocytes (%) (Auto) 21 12-44 % Monocytes (%) (Auto) 11 0-12 % Eosinophils (%) (Auto) 1 0-10 % Basophils (%) (Auto) 1 0-10 % Neutrophils # (Auto) 6.9 1.8-7.8 10^3/uL Lymphocytes # (Auto) 2.3 1.0-4.0 10^3/uL Monocytes # (Auto) 1.2 H 0.0-1.0 10^3/uL Eosinophils # (Auto) 0.1 0.0-0.3 10^3/uL Basophils # (Auto) 0.1 0.0-0.1 10^3/uL Immature Granulocyte # (Auto) 0.5 H 0.0-0.1 10^3/uL OB - Assessment/Plan/Diagnosis Assessment Assessment: induction of labor Admission Dx IUP @ 36w5d Advanced maternal age Severe preeclampsia Admission Status: Inpatient Order (span 2 midnights) Reason for Inpatient Admission: Induction of labor d/t severe preeclampsia Plan Plan: Induction Induction Method: per Pitocin Protocol GLORIA WOODARD DO Oct 27, 2022 12:40
[2022-10-27] MEDS: D5 LR 1,000 ML IV SOLN 1,000 ML IV SCH ×2 (13:15→20:00)
[2022-10-27] MEDS: MAGNESIUM SULFATE DRIP 500 ML IV SCH ×2 (13:22→23:10)
[2022-10-27] MEDS: OXYTOCIN PRE-MIX DRIP 500 ML IV SCH (13:45)
[2022-10-27] MEDS ORDERED: CATHETER FLUSH 10 ML SYR IV SCH (14:00)
[2022-10-27] MEDS ORDERED: fentaNYL 2 mcg/ml BUPIVA 0.125 100 ML ONE ×2 (14:00→21:24)
[2022-10-27] MEDS ORDERED: fentaNYL INJ 100 MCG/2 ML AMP ONE (14:32)
[2022-10-27] MEDS ORDERED: BUPIVACAINE 0.25% 10 ML VIAL ONE (14:32)
[2022-10-27] MEDS: fentaNYL 2 mcg/ml BUPIVA 0.125 100 ML EPI SCH ×2 (14:40→22:06)
[2022-10-27] MEDS ORDERED: PNV-9 PO ×2 (16:26)
[2022-10-27] MEDS ORDERED: CEPH500C PO ×2 (16:41)
[2022-10-27] MEDS ORDERED: LABE100T9 PO (16:41)
[2022-10-27] MEDS: AMPICILLIN (IV) 1,000 MG in NS (IVPB) 50 ML 50 ML IV SCH ×2 (16:47→20:48)
--- NOTE | 2022-10-27 17:41 | OB Triage Report ---
Standard Progress Note Progress Notes/Assess & Plan Date Seen by a Provider: Oct 27, 2022 Time Seen by a Provider: 17:30 Expected Date of Delivery: Nov 19, 2022 Gestational Age in Weeks: 36 Gestational Age in Days: 5 LMP/GOVIND Comment: Pt is comfortable with epidural BP 140/80 FHR 145 CAT I CVX 4/75/-3 AROM clear fluid IUP & FSE placed w/o difficulty TOCOs Q 3min Pit@ 10mu/min mag@2g/h Progress/Assessment & Plan IUP @ 36w5d Severe preeclampsia on mag & pitocin continue to monitor closely Anticipate delivery GLORIA WOODARD DO Oct 27, 2022 17:41
[2022-10-27] MEDS ORDERED: LABETALOL 200 MG (NORMODYNE) TAB PO NR (19:00)
[2022-10-27] MEDS ORDERED: hydrALAZINE (APESOLINE) 20 MG/ML VIAL IV ONE ×2 (20:00→23:00)
[2022-10-27] MEDS ORDERED: hydrALAZINE (APESOLINE) 20 MG/ML VIAL ONE ×2 (20:00→22:53)
[2022-10-27] MEDS ORDERED: NALOXONE 0.4 MG/ML 1 ML (NARCAN) VIAL IV PRN (21:45)
[2022-10-27] MEDS ORDERED: CATHETER FLUSH 10 ML SYR IV PRN (21:45)
[2022-10-27] MEDS ORDERED: LIDOCAINE/EPI 2% 1:200,00 (XYLOCAINE) 20 ML VIAL ONE (22:50)
[2022-10-28] VITALS (30 sets, daily range): BP systolic 124–164; BP diastolic 70–102
[2022-10-28] MEDS: ACETAMINOPHEN 500 MG TABLET PO PRN ×3 (00:06→16:40)
[2022-10-28] MEDS: OXYTOCIN PRE-MIX DRIP 500 ML IV SCH (00:07)
[2022-10-28] MEDS ORDERED: NALOXONE 0.4 MG/ML 1 ML (NARCAN) VIAL IV PRN (00:15)
[2022-10-28] MEDS ORDERED: WITCH HAZEL(TUCKS) 40 EA JAR TOP PRN (00:15)
[2022-10-28] MEDS ORDERED: MEASLES,MUMPS,RUBELLA 1 EA INJ SQ ONE (00:15)
[2022-10-28] MEDS ORDERED: TRANEXAMIC ACID INJECTION 1,000 MG in NS (IVPB) 50 ML 50 ML IV ONE ×3 (00:15)
[2022-10-28] MEDS ORDERED: Tetanus/Diphtheria/Pertussis (Acell) ADULT Vaccine 0.5 ML IM ONE (00:15)
[2022-10-28] MEDS ORDERED: BENZOCAINE/MENTHOL (DERMOPLAST) 56 ML CAN TP PRN (00:15)
[2022-10-28] MEDS ORDERED: OXYTOCIN PRE-MIX DRIP 500 ML IV SCH (00:15)
[2022-10-28] MEDS ORDERED: DIBUCAINE 1% OINTMENT 28 GM TUBE TOP PRN (00:15)
--- NOTE | 2022-10-28 00:22 | OB Labor & Delivery Record ---
Vag Delivery Note Vag Delivery Note Date of Delivery: 10/28/22 Preoperative Diagnosis: Sharmin Dumont is a (37 /Para 7 / 4, Gestational Age (wks)36w5d with Severe preeclampsia. Postoperative Diagnosis: Same Surgeon: GLORIA WOODARD Biochemist: [] Anesthesia: Epidural Delivery Type: Spontaneous vaginal delivery Findings: [] Liveborn male , apgars 8/9, weight 3480g 7#11oz Lacerations: None Intact placenta with 3 vessel cord. Nuchal hand (left), body cord or shoulder dystocia Estimated Blood Loss: 500 ml Complications: None Condition: Stable Description of Procedure: The patient is a 37 year old female who presented At 36 weeks 5 days with severe preeclampsia. In the office her blood pressures were 160s/80s. She was complaining of some nausea but denied headaches vision changes or epigastric pain. She was admitted and informed consent was obtained. She was started on Pitocin and initial cervical exam was 2/50/-3. She progressed to complete dilatation and began to push. The patient will was complete and pushed for approximately 10 minutes to deliver the head in a straight OA position which restituted to POLY position. There was a nuchal hand (left) that delivered followed by the anterior shoulder (right) and by the rest the . The was placed on maternal abdomen and after 60 seconds the cord was clamped and then cut. The placenta delivered spontaneously intact with a three-vessel cord. The cervix, vagina, periurethral and perineal areas were all inspected. There were no lacerations. Uterus was slightly boggy and QBL was 500 cc. Uterus was massaged and TXA 1 g was given IV. The mother and tolerated the procedure well and recovering in the room in stable condi tion. All sponge, instrument and needle counts were correct x2. Vitals - Labs Vital Signs - I&O Vital Signs Date Time Temp Pulse Resp B/P (MAP) Pulse Ox O2 Delivery O2 Flow Rate FiO2 10/27/22 23:15 90 18 164/95 (118) 93 Room Air 10/27/22 23:00 91 18 166/99 (121) 96 Room Air 10/27/22 22:45 92 18 172/100 (124) 93 Room Air 10/27/22 22:34 88 18 181/100 (127) 93 Room Air 10/27/22 22:25 91 18 179/97 (124) 93 Room Air 10/27/22 22:20 88 18 164/89 (114) 93 Room Air 10/27/22 22:15 88 18 176/91 (119) 94 Room Air 10/27/22 22:10 90 18 172/96 (121) 96 Room Air 10/27/22 22:05 36.0 93 18 148/86 (106) 96 Room Air 10/27/22 22:00 91 18 137/77 (97) 95 Room Air 10/27/22 21:55 90 18 135/78 (97) 94 Room Air 10/27/22 21:50 94 18 131/75 (93) 95 Room Air 10/27/22 21:45 93 18 133/76 (95) 95 Room Air 10/27/22 21:40 93 18 124/73 (90) 96 Room Air 10/27/22 21:35 88 18 122/72 (89) 93 Room Air 10/27/22 21:30 90 18 123/72 (89) 93 Room Air 10/27/22 21:25 92 18 127/76 (93) 94 Room Air 10/27/22 21:20 94 18 123/76 (92) 96 Room Air 10/27/22 21:15 36.0 94 18 128/74 (92) 96 Room Air 10/27/22 21:00 93 18 129/73 (91) 93 Room Air 10/27/22 20:45 36.6 93 18 136/80 (98) 94 Room Air 10/27/22 20:30 100 18 141/86 (104) 96 Room Air 10/27/22 20:15 99 18 131/82 (98) 94 Room Air 10/27/22 20:07 94 18 169/92 (117) 94 Room Air 10/27/22 20:00 95 Room Air 10/27/22 19:55 93 18 172/89 (116) 95 Room Air 10/27/22 19:45 96 18 168/93 (118) 93 Room Air 10/27/22 19:34 36.3 102 18 176/99 (124) 96 Room Air 10/27/22 19:22 101 18 165/95 (118) 95 Room Air 10/27/22 19:08 107 18 148/91 (110) 93 Room Air 7/28/23 18:55 107 168/94 (118) 10/27/22 18:50 99 92 Room Air 10/27/22 18:45 98 93 Room Air 10/27/22 18:40 100 162/90 (114) 92 Room Air 10/27/22 18:35 96 93 Room Air 10/27/22 18:30 102 93 Room Air 10/27/22 18:25 98 151/90 (110) 93 Room Air 10/27/22 18:20 102 94 Room Air 10/27/22 18:15 103 93 Room Air 10/27/22 18:10 99 162/93 (116) 93 Room Air 10/27/22 18:05 96 93 Room Air 10/27/22 18:00 100 93 Room Air 10/27/22 17:55 97 158/95 (116) 94 Room Air 10/27/22 17:50 96 94 Room Air 10/27/22 17:45 101 95 Room Air 10/27/22 17:40 98 147/86 (106) 94 Room Air 10/27/22 17:35 110 97 Room Air 10/27/22 17:30 111 97 Room Air 10/27/22 17:25 107 148/84 (105) 96 Room Air 10/27/22 17:20 93 95 Room Air 10/27/22 17:15 37.2 92 91 Room Air 10/27/22 17:10 96 133/73 (93) 93 Room Air 10/27/22 17:05 90 91 Room Air 10/27/22 17:00 87 91 Room Air 10/27/22 16:55 84 139/72 (94) 92 Room Air 10/27/22 16:50 98 94 Room Air 10/27/22 16:45 90 91 Room Air 10/27/22 16:40 90 136/72 (93) 91 Room Air 10/27/22 16:35 92 94 Room Air 10/27/22 16:30 88 90 Room Air 10/27/22 16:25 87 141/75 (97) 97 Room Air 10/27/22 16:20 87 93 Room Air 10/27/22 16:15 88 91 Room Air 10/27/22 16:10 84 93 Room Air 10/27/22 16:06 96 154/87 (109) 10/27/22 16:05 96 94 Room Air 10/27/22 16:00 83 142/78 (99) 93 Room Air 10/27/22 15:57 83 147/75 (99) 10/27/22 15:55 83 94 Room Air 10/27/22 15:50 80 137/76 (96) 96 Room Air 10/27/22 15:45 87 144/77 (99) 95 Room Air 10/27/22 15:40 94 146/79 (101) 96 Room Air 10/27/22 15:35 87 140/77 (98) 93 Room Air 10/27/22 15:32 86 153/78 (103) 10/27/22 15:30 91 97 Room Air 10/27/22 15:25 92 160/84 (109) 98 Room Air 10/27/22 15:20 87 148/79 (102) 94 Room Air 10/27/22 15:15 36.7 92 153/78 (103) 93 Room Air 10/27/22 15:10 90 147/85 (105) 93 Room Air 10/27/22 15:05 90 146/83 (104) 93 Room Air 10/27/22 15:00 96 144/86 (105) 94 Room Air 10/27/22 14:55 91 153/87 (109) 94 Room Air 10/27/22 14:52 86 152/84 (106) 10/27/22 14:50 94 156/87 (110) 95 Room Air 10/27/22 14:47 88 154/82 (106) 95 Room Air 10/27/22 14:44 95 149/83 (105) 95 Room Air 10/27/22 14:41 88 145/88 (107) 94 Room Air 10/27/22 14:38 36.9 86 154/88 (110) 99 Room Air 10/27/22 14:32 97 164/99 (120) 99 Room Air 10/27/22 14:29 100 165/90 (115) 99 Room Air 10/27/22 14:26 93 165/92 (116) 99 Room Air 10/27/22 14:15 110 164/100 (121) 96 Room Air 10/27/22 14:00 87 159/92 (114) 96 Room Air 10/27/22 13:45 96 151/86 (107) 96 Room Air 10/27/22 13:28 83 146/77 (100) 95 Room Air 10/27/22 13:25 81 93 Room Air 10/27/22 13:20 82 93 Room Air 10/27/22 13:14 79 147/70 (95) 93 Room Air 10/27/22 13:10 79 93 Room Air 10/27/22 13:05 80 95 Room Air 10/27/22 12:43 74 148/88 (108) 10/27/22 12:31 70 148/81 (103) 10/27/22 12:13 74 162/88 (112) 10/27/22 12:07 74 158/78 (104) 10/27/22 12:03 78 96 Room Air 10/27/22 11:58 81 97 Room Air 10/27/22 11:53 78 97 Room Air 10/27/22 11:48 75 98 Room Air 10/27/22 11:43 36.7 65 18 94 Room Air 10/27/22 11:42 36.7 65 18 162/86 (111) 94 Room Air I & O 10/28/22 07:00 Intake Total 964.8 ml Output Total 700 ml Balance 264.8 ml Labs Laboratory Tests 10/27/22 12:18: White Blood Count 10.9, Red Blood Count 3.91, Hemoglobin 10.3L, Hematocrit 32L, Mean Corpuscular Volume 82, Mean Corpuscular Hemoglobin 26, Mean Corpuscular Hemoglobin Concent 32, Red Cell Distribution Width 17.9H, Platelet Count 381, Mean Platelet Volume 10.8, Immature Granulocyte % (Auto) 4, Neutrophils (%) (Auto) 63, Lymphocytes (%) (Auto) 21, Monocytes (%) (Auto) 11, Eosinophils (%) (Auto) 1, Basophils (%) (Auto) 1, Neutrophils # (Auto) 6.9, Lymphocytes # (Auto) 2.3, Monocytes # (Auto) 1.2H, Eosinophils # (Auto) 0.1, Basophils # (Auto) 0.1, Immature Granulocyte # (Auto) 0.5H, Magnesium Level 1.7, Syphilis Total Antibody Negative GLORIA WOODARD DO Oct 28, 2022 00:22
[2022-10-28] MEDS: IBUPROFEN 800 MG (MOTRIN) TAB PO PRN ×3 (00:44→16:40)
[2022-10-28] MEDS ORDERED: hydrALAZINE (APESOLINE) 20 MG/ML VIAL IV ONE (00:45)
[2022-10-28] MEDS ORDERED: CARBOPROST 250 MCG/ML 1 ML AMPULE IM ONE (01:00)
[2022-10-28] MEDS: D5 LR 1,000 ML IV SOLN 1,000 ML IV SCH ×2 (07:17→20:29)
[2022-10-28] MEDS: DOCUSATE SODIUM 100 MG CAPSULE PO SCH ×2 (08:39→20:55)
[2022-10-28] MEDS: LABETALOL 200 MG (NORMODYNE) TAB PO SCH ×2 (08:39→20:55)
--- NOTE | 2022-10-28 08:52 | Postpartum Progress Note ---
Note Note Day # 1 Subjective:,Patient states that she feels a little dizzy she has no headaches vision changes nausea vomiting or epigastric pain. She is tolerating her diet. Patient is currently on 2 g/h of magnesium sulfate. Labetalol 100 mg twice daily. I/O: 2300/3100 Objective: Vital signs stable afebrile Last BP 138/84 Physical Exam: General - Alert and oriented, no apparent distress Heart regular rate and rhythm Lungs clear to auscultation bilaterally Breast symmetrical no erythema or edema or engorgement. Abdomen - Soft, appropriately tender to palpation, non-distended, fundus firm at umbilicus Lochia moderate Extremities - +1 pitting edema bilaterally DTRs +1/4 equal bilaterally Assessment: [] post- day # 1 status post spontaneous vaginal delivery Severe preeclampsia. Recovering well, hemodynamically stable Plan: Continue magnesium sulfate at 2 g an hour Labetalol 100 mg p.o. twice daily Mag level and CBC pending this morning Encourage breast feeding. Continue monitoring I's and O's Ferrous sulfate supplementation. Plan for Discontinuation of mag after 24 hours Vitals - Labs Vital Signs - I&O Vital Signs Date Time Temp Pulse Resp B/P (MAP) Pulse Ox O2 Delivery O2 Flow Rate FiO2 10/28/22 08:38 36.4 94 Room Air 10/28/22 08:00 80 18 138/84 (102) Room Air 10/28/22 07:00 36.5 78 18 144/86 (105) 96 Room Air 10/28/22 06:00 36.3 76 18 157/91 (113) 99 Room Air 10/28/22 05:00 36.1 78 18 151/90 (110) 99 Room Air 10/28/22 04:00 36.0 80 18 156/102 (120) 99 Room Air 10/28/22 03:00 36.0 76 18 160/91 (114) 94 Room Air 10/28/22 02:30 36.0 75 18 146/84 (104) Room Air 10/28/22 02:00 36.0 82 18 139/80 (99) Room Air 10/28/22 01:30 36.3 86 18 145/78 (100) 96 Room Air 10/28/22 01:15 87 18 151/80 (103) 94 Room Air 10/28/22 01:00 85 18 140/71 (94) 94 Room Air 10/28/22 00:45 36.7 85 18 137/70 (92) Room Air 10/28/22 00:30 36.5 86 18 162/99 (120) Room Air 10/28/22 00:15 36.5 85 18 160/95 (116) 95 Room Air 10/28/22 00:00 99 18 164/94 (117) 95 Room Air 10/27/22 23:45 36.4 100 18 155/82 (106) Room Air 10/27/22 23:30 101 18 181/108 (132) 96 Room Air 10/27/22 23:15 90 18 164/95 (118) 93 Room Air 10/27/22 23:00 91 18 166/99 (121) 96 Room Air 10/27/22 22:45 92 18 172/100 (124) 93 Room Air 10/27/22 22:34 88 18 181/100 (127) 93 Room Air 10/27/22 22:25 91 18 179/97 (124) 93 Room Air 10/27/22 22:20 88 18 164/89 (114) 93 Room Air 10/27/22 22:15 88 18 176/91 (119) 94 Room Air 10/27/22 22:10 90 18 172/96 (121) 96 Room Air 10/27/22 22:05 36.0 93 18 148/86 (106) 96 Room Air 10/27/22 22:00 91 18 137/77 (97) 95 Room Air 10/27/22 21:55 90 18 135/78 (97) 94 Room Air 10/27/22 21:50 94 18 131/75 (93) 95 Room Air 10/27/22 21:45 93 18 133/76 (95) 95 Room Air 10/27/22 21:40 93 18 124/73 (90) 96 Room Air 10/27/22 21:35 88 18 122/72 (89) 93 Room Air 10/27/22 21:30 90 18 123/72 (89) 93 Room Air 10/27/22 21:25 92 18 127/76 (93) 94 Room Air 10/27/22 21:20 94 18 123/76 (92) 96 Room Air 10/27/22 21:15 36.0 94 18 128/74 (92) 96 Room Air 10/27/22 21:00 93 18 129/73 (91) 93 Room Air 10/27/22 20:45 36.6 93 18 136/80 (98) 94 Room Air 10/27/22 20:30 100 18 141/86 (104) 96 Room Air 10/27/22 20:15 99 18 131/82 (98) 94 Room Air 10/27/22 20:07 94 18 169/92 (117) 94 Room Air 10/27/22 20:00 95 Room Air 10/27/22 19:55 93 18 172/89 (116) 95 Room Air 10/27/22 19:45 96 18 168/93 (118) 93 Room Air 10/27/22 19:34 36.3 102 18 176/99 (124) 96 Room Air 10/27/22 19:22 101 18 165/95 (118) 95 Room Air 10/27/22 19:08 107 18 148/91 (110) 93 Room Air 10/27/22 18:55 107 168/94 (118) 10/27/22 18:50 99 92 Room Air 10/27/22 18:45 98 93 Room Air 10/27/22 18:40 100 162/90 (114) 92 Room Air 10/27/22 18:35 96 93 Room Air 10/27/22 18:30 102 93 Room Air 10/27/22 18:25 98 151/90 (110) 93 Room Air 10/27/22 18:20 102 94 Room Air 10/27/22 18:15 103 93 Room Air 10/27/22 18:10 99 162/93 (116) 93 Room Air 10/27/22 18:05 96 93 Room Air 10/27/22 18:00 100 93 Room Air 10/27/22 17:55 97 158/95 (116) 94 Room Air 10/27/22 17:50 96 94 Room Air 10/27/22 17:45 101 95 Room Air 10/27/22 17:40 98 147/86 (106) 94 Room Air 10/27/22 17:35 110 97 Room Air 10/27/22 17:30 111 97 Room Air 10/27/22 17:25 107 148/84 (105) 96 Room Air 10/27/22 17:20 93 95 Room Air 10/27/22 17:15 37.2 92 91 Room Air 10/27/22 17:10 96 133/73 (93) 93 Room Air 10/27/22 17:05 90 91 Room Air 10/27/22 17:00 87 91 Room Air 10/27/22 16:55 84 139/72 (94) 92 Room Air 10/27/22 16:50 98 94 Room Air 10/27/22 16:45 90 91 Room Air 10/27/22 16:40 90 136/72 (93) 91 Room Air 10/27/22 16:35 92 94 Room Air 10/27/22 16:30 88 90 Room Air 10/27/22 16:25 87 141/75 (97) 97 Room Air 10/27/22 16:20 87 93 Room Air 10/27/22 16:15 88 91 Room Air 10/27/22 16:10 84 93 Room Air 10/27/22 16:06 96 154/87 (109) 10/27/22 16:05 96 94 Room Air 10/27/22 16:00 83 142/78 (99) 93 Room Air 10/27/22 15:57 83 147/75 (99) 10/27/22 15:55 83 94 Room Air 10/27/22 15:50 80 137/76 (96) 96 Room Air 10/27/22 15:45 87 144/77 (99) 95 Room Air 10/27/22 15:40 94 146/79 (101) 96 Room Air 10/27/22 15:35 87 140/77 (98) 93 Room Air 10/27/22 15:32 86 153/78 (103) 10/27/22 15:30 91 97 Room Air 10/27/22 15:25 92 160/84 (109) 98 Room Air 10/27/22 15:20 87 148/79 (102) 94 Room Air 10/27/22 15:15 36.7 92 153/78 (103) 93 Room Air 10/27/22 15:10 90 147/85 (105) 93 Room Air 10/27/22 15:05 90 146/83 (104) 93 Room Air 10/27/22 15:00 96 144/86 (105) 94 Room Air 10/27/22 14:55 91 153/87 (109) 94 Room Air 10/27/22 14:52 86 152/84 (106) 10/27/22 14:50 94 156/87 (110) 95 Room Air 10/27/22 14:47 88 154/82 (106) 95 Room Air 10/27/22 14:44 95 149/83 (105) 95 Room Air 10/27/22 14:41 88 145/88 (107) 94 Room Air 10/27/22 14:38 36.9 86 154/88 (110) 99 Room Air 10/27/22 14:32 97 164/99 (120) 99 Room Air 10/27/22 14:29 100 165/90 (115) 99 Room Air 10/27/22 14:26 93 165/92 (116) 99 Room Air 10/27/22 14:15 110 164/100 (121) 96 Room Air 10/27/22 14:00 87 159/92 (114) 96 Room Air 10/27/22 13:45 96 151/86 (107) 96 Room Air 10/27/22 13:28 83 146/77 (100) 95 Room Air 10/27/22 13:25 81 93 Room Air 10/27/22 13:20 82 93 Room Air 10/27/22 13:14 79 147/70 (95) 93 Room Air 10/27/22 13:10 79 93 Room Air 10/27/22 13:05 80 95 Room Air 10/27/22 12:43 74 148/88 (108) 10/27/22 12:31 70 148/81 (103) 10/27/22 12:13 74 162/88 (112) 10/27/22 12:07 74 158/78 (104) 10/27/22 12:03 78 96 Room Air 10/27/22 11:58 81 97 Room Air 10/27/22 11:53 78 97 Room Air 10/27/22 11:48 75 98 Room Air 10/27/22 11:43 36.7 65 18 94 Room Air 10/27/22 11:42 36.7 65 18 162/86 (111) 94 Room Air I & O 10/28/22 07:00 Intake Total 2014.8 ml Output Total 700 ml Balance 1314.8 ml Labs Laboratory Tests 10/27/22 12:18: White Blood Count 10.9, Red Blood Count 3.91, Hemoglobin 10.3L, Hematocrit 32L, Mean Corpuscular Volume 82, Mean Corpuscular Hemoglobin 26, Mean Corpuscular Hemoglobin Concent 32, Red Cell Distribution Width 17.9H, Platelet Count 381, Mean Platelet Volume 10.8, Immature Granulocyte % (Auto) 4, Neutrophils (%) (Auto) 63, Lymphocytes (%) (Auto) 21, Monocytes (%) (Auto) 11, Eosinophils (%) (Auto) 1, Basophils (%) (Auto) 1, Neutrophils # (Auto) 6.9, Lymphocytes # (Auto) 2.3, Monocytes # (Auto) 1.2H, Eosinophils # (Auto) 0.1, Basophils # (Auto) 0.1, Immature Granulocyte # (Auto) 0.5H, Magnesium Level 1.7, Syphilis Total Antibody Negative GLORIA WOODADR DO Oct 28, 2022 08:52
[2022-10-28] MEDS: MAGNESIUM SULFATE DRIP 500 ML IV SCH ×2 (08:57→18:55)
[2022-10-28 09:38] LABS: BASOPHILS # (AUTO) 0.1 10^3/uL (0.0-0.1); BASOPHILS % (AUTO) 0 % (0-10); EOSINOPHILS % (AUTO) 0 % (0-10); HEMATOCRIT 31 % (35-52); LYMPHOCYTES % (AUTO) 12 % (12-44); MEAN CORPUSCULAR HEMOGLOBIN 26 pg (25-34); MEAN CORPUSCULAR HGB CONC 33 g/dL (32-36); MEAN CORPUSCULAR VOLUME 81 fL (80-99); MEAN PLATELET VOLUME 10.9 fL (9.0-12.2); MONOCYTES % (AUTO) 6 % (0-12); NEUTROPHILS # (AUTO) 13.9 10^3/uL (1.8-7.8); NEUTROPHILS % (AUTO) 81 % (42-75); PLATELET COUNT 388 10^3/uL (130-400); WHITE BLOOD COUNT 17.3 10^3/uL (4.3-11.0)
[2022-10-28 09:45] LABS: ALBUMIN 2.7 GM/DL (3.2-4.5); POTASSIUM 3.6 MMOL/L (3.6-5.0)
[2022-10-28 09:47] LABS: TOTAL PROTEIN 5.5 GM/DL (6.4-8.2)
[2022-10-28 09:49] LABS: BILIRUBIN,TOTAL 0.4 MG/DL (0.1-1.0)
[2022-10-28 09:51] LABS: CREATININE SERUM 0.57 MG/DL (0.60-1.30)
[2022-10-28 10:13] LABS: MAGNESIUM 5.8 MG/DL (1.6-2.4)
[2022-10-28] MEDS: PRENATAL VITAMIN 1 EA TAB PO SCH (10:24)
[2022-10-28] MEDS: FERROUS SULF 325 MG (IRON) TAB PO SCH (10:24)
[2022-10-29] VITALS (12 sets, daily range): BP systolic 125–152; BP diastolic 68–92
[2022-10-29] MEDS: ACETAMINOPHEN 500 MG TABLET PO PRN ×3 (00:21→17:50)
[2022-10-29] MEDS: IBUPROFEN 800 MG (MOTRIN) TAB PO PRN ×3 (00:22→17:50)
[2022-10-29] MEDS: PRENATAL VITAMIN 1 EA TAB PO SCH (09:28)
[2022-10-29] MEDS: LABETALOL 200 MG (NORMODYNE) TAB PO SCH ×2 (09:28→20:52)
[2022-10-29] MEDS: FERROUS SULF 325 MG (IRON) TAB PO SCH (09:28)
[2022-10-29] MEDS: DOCUSATE SODIUM 100 MG CAPSULE PO SCH ×2 (09:28→20:52)
[2022-10-29] MEDS: CATHETER FLUSH 10 ML SYR IV SCH ×2 (09:33→14:54)
--- NOTE | 2022-10-29 10:34 | Postpartum Progress Note ---
Note Note Day # 2 Subjective: Patient is without complaints Denies PALMER vision changes n/v. Mag turned off this am @0500. Sanchez catheter removed this am. Tolerating a regular diet without nausea or vomiting. Normal lochia. Pain is well controlled with oral pain medications. Breast-feeding. [] Objective: BP 130-140/70-80 Physical Exam: General - Alert and oriented, no apparent distress HRRR LCTAB Breasts symmetrical no erythema or engorgement Abdomen - Soft, appropriately tender to palpation, non-distended, fundus firm at umbilicus Lochia minimal Extremities - Trace edema BLE DTRS +2/4 equal BL Assessment: [] post- day #2, status post vaginal delivery Severe preeclampsia BPs stable. Recovering well, hemodynamically stable Plan: Routine care. Mag DC'd this am Labetalol 100mg bid Continue to monitor BP closely May shower Encourage breast feeding. Encourage ambulation. Ferrous sulfate supplementation. Plan for discharge [] Vitals - Labs Vital Signs - I&O Vital Signs Date Time Temp Pulse Resp B/P (MAP) Pulse Ox O2 Delivery O2 Flow Rate FiO2 10/29/22 09:20 37.0 87 18 142/72 (95) 96 Room Air 10/29/22 07:00 133/84 (100) 10/29/22 06:00 71 18 134/84 (101) 10/29/22 06:00 36.9 71 18 134/84 (101) 95 Room Air 10/29/22 05:00 81 18 138/92 (107) Room Air 10/29/22 05:00 81 18 138/92 (107) 10/29/22 04:00 36.7 89 18 142/88 (106) 96 Room Air 10/29/22 04:00 89 18 142/88 (106) 10/29/22 03:00 82 18 125/82 (96) 10/29/22 03:00 82 18 125/81 (96) Room Air 10/29/22 02:00 80 18 131/79 (96) Room Air 10/29/22 02:00 80 18 131/79 (96) 10/29/22 01:00 81 18 133/82 (99) Room Air 10/29/22 01:00 81 18 133/82 (99) 10/29/22 00:00 90 18 138/88 (105) 10/29/22 00:00 36.7 90 18 138/88 (105) 95 Room Air 10/28/22 23:00 92 18 149/88 (108) 95 Room Air 10/28/22 23:00 92 18 149/88 (108) 10/28/22 22:00 94 18 143/89 (107) Room Air 10/28/22 22:00 94 18 143/89 (107) 10/28/22 21:00 37.2 89 18 148/92 (110) Room Air 10/28/22 21:00 89 18 148/92 (110) 10/28/22 20:55 Room Air 10/28/22 20:00 92 18 151/86 (107) 96 Room Air 10/28/22 20:00 92 18 151/86 (107) 10/28/22 19:00 95 18 153/88 (109) Room Air 10/28/22 18:00 87 18 140/79 (99) Room Air 10/28/22 17:00 89 18 142/84 (103) Room Air 10/28/22 16:50 36.7 96 Room Air 10/28/22 16:00 105 18 140/90 (107) Room Air 10/28/22 15:00 80 18 126/75 (92) Room Air 10/28/22 14:00 80 18 137/78 (97) Room Air 10/28/22 13:00 80 18 141/85 (103) Room Air 10/28/22 12:21 36.6 96 Room Air 10/28/22 12:00 83 18 142/88 (106) Room Air 10/28/22 11:00 79 18 124/74 (91) Room Air I & O 10/29/22 07:00 Intake Total 5185 ml Output Total 7275 ml Balance -2090 ml GLORIA WOODARD DO Oct 29, 2022 10:34
[2022-10-29] MEDS ORDERED: DOCU100C37 PO ×2 (10:40)
[2022-10-29] MEDS ORDERED: FERR325T24 PO ×2 (10:40)
[2022-10-29] MEDS ORDERED: IBUP-1780 PO ×2 (10:40)
[2022-10-29] MEDS ORDERED: LABE100T9 PO ×2 (10:40)
--- NOTE | 2022-10-29 12:26 | Anesthesia-Regional Post-Op ---
Regional Patient Condition Mental Status: Alert, Oriented x3 Circulation: Same as Pre-Op Headache: Absent Sensation: Full Recovery Motor Block: Absent Post Op Complications Complications None Follow Up Care/Instructions Patient Instructions None needed. Anesthesia/Patient Condition Patient is doing well, no complaints, stable vital signs, no apparent adverse anesthesia problems. No complications reported per nursing. GORDY UNDERWOOD CRNA Oct 29, 2022 12:26
[2022-10-30 00:20] VITALS: BP 125/64
[2022-10-30 04:27] VITALS: BP 134/68
[2022-10-30] MEDS: IBUPROFEN 800 MG (MOTRIN) TAB PO PRN (04:27)
[2022-10-30] MEDS: ACETAMINOPHEN 500 MG TABLET PO PRN (04:28)
--- NOTE | 2022-10-30 08:05 | Postpartum Progress Note ---
Note Note Day # 3 Subjective: Patient is without complaints. Ambulating, voiding. Tolerating a regular diet without nausea or vomiting. Normal lochia. Pain is well controlled with oral pain medications. Delivered and kept by my partner Dr. Weber, due to continued labile BP control on labetalol. Appears to have improved overnight. Objective: Physical Exam: General - Alert and oriented, no apparent distress Abdomen - Soft, appropriately tender to palpation, non-distended, fundus firm at umbilicus Extremities - no edema, negative Magda's bilaterally Assessment: Post- day #3, status post vaginal delivery Severe preeclampsia BPs stable. Recovering well, hemodynamically stable Plan: Routine care. Encourage breast feeding. Encourage ambulation. Ferrous sulfate supplementation. Plan for discharge today Vitals - Labs Vital Signs - I&O Vital Signs Date Time Temp Pulse Resp B/P (MAP) Pulse Ox O2 Delivery O2 Flow Rate FiO2 10/30/22 04:27 37.2 81 18 134/68 (90) 95 Room Air 10/30/22 00:20 37.2 84 18 125/64 (84) 94 Room Air 10/29/22 20:00 37.3 83 20 139/69 (92) 96 Room Air 10/29/22 20:00 96 Room Air 10/29/22 16:30 36.7 85 18 152/68 (96) 95 Room Air 10/29/22 11:40 36.8 85 18 145/77 (99) 96 Room Air 10/29/22 09:20 37.0 87 18 142/72 (95) 96 Room Air 10/29/22 09:20 Room Air 10/29/22 09:20 Room Air I & O 10/30/22 07:00 Intake Total 1500 ml Output Total 1025 ml Balance 475 ml PUNEET PULLIAM DO Oct 30, 2022 08:05
[2022-10-30] MEDS: DOCUSATE SODIUM 100 MG CAPSULE PO SCH (08:58)
[2022-10-30] MEDS: FERROUS SULF 325 MG (IRON) TAB PO SCH (08:58)
[2022-10-30] MEDS: LABETALOL 200 MG (NORMODYNE) TAB PO SCH (08:58)
[2022-10-30] MEDS: PRENATAL VITAMIN 1 EA TAB PO SCH (08:58)
[2022-10-30 09:00] VITALS: BP 147/72
[2022-10-30 12:00] VITALS: BP 152/80
[2022-10-30] MEDS ORDERED: LABE100T9 PO ×2 (12:28)
== END 2022-10-30 14:15 | disposition home or self-care (01) | DRG 807 ==
LOC: LDRP 11:41
PROVIDERS: ADMIT Obstetrics & Gynecology; ATTEND Obstetrics & Gynecology
PROC: 3E033VJ Introduction of Other Hormone into Peripheral Vein, Percutaneous Approach (ICD-10-PCS; 2022-10-27)
PROC: 10907ZC Drainage of Amniotic Fluid, Therapeutic from Products of Conception, Via Natural or Artificial Opening (ICD-10-PCS; 2022-10-27)
PROC: 10E0XZZ Delivery of Products of Conception, External Approach (ICD-10-PCS; principal; 2022-10-28)
DX: O14.14 Severe pre-eclampsia complicating childbirth (principal); Z37.0 Single live birth; O99.824 Streptococcus B carrier state complicating childbirth; O69.82X0 Labor and delivery complicated by other cord entanglement, without compression, not applicable or unspecified; O62.2 Other uterine inertia; Z3A.36 36 weeks gestation of pregnancy
CPT/HCPCS: 36415; 80053; 83735; 85025; 86780; 86850; 86900; 86901

== ENCOUNTER → 2022-10-27 | Outpatient (CLI) | payer SELFPAY ==
[~2022-10-27] MED LIST changes: +DOCU100C37 PO; +FERR325T24 PO
== END ==
LOC: LABNPT 10:39
PROVIDERS: ATTEND Obstetrics & Gynecology
DX: O13.9 Gestational [pregnancy-induced] hypertension without significant proteinuria, unspecified trimester (principal); Z3A.00 Weeks of gestation of pregnancy not specified
CPT/HCPCS: 82570; 84156